=== PATIENT | female | born 1945 | race Caucasian/White ===

== ENCOUNTER 2018-01-13 13:12 | Emergency (ER) | payer MEDICARE ==
[~2018-01-13] VITALS: Ht 165.1 cm; Wt 86.0 kg
[~2018-01-13 13:12] MED LIST: ATOR20TA42 PO; CITRTAB7 PO; LEVO100T4 PO; LISI-363 PO; [UNRECOGNIZED DRUG - CODE] PO
[2018-01-13 13:15] VITALS: BP 133/66; PULSE 75; RESP 16; TEMP 97.5; O2SAT 97
[2018-01-13] MEDS ORDERED: ATOR20TA15 PO (13:27)
[2018-01-13] MEDS ORDERED: LISI-515 PO (13:27)
[2018-01-13] MEDS ORDERED: LEVO100T5 PO (13:27)
[2018-01-13] MEDS ORDERED: PAXI10TA8 PO (13:27)
--- NOTE | 2018-01-13 14:00 | PD ---
HPI Chief Complaint: Laceration/Skin Injury Time Seen by Provider: 13:42 Travel History International Travel<30 days: No Contact w/Intl Traveler<30days: No Traveled to known affect area: No History of Present Illness HPI 72-year-old female here with right hand pain and laceration. Patient reports she tripped and fell over a stack of wood injuring the right hand. She denies head injury or loss of consciousness. No neck pain, chest pain, abdominal pain , paresthesia or weakness of the extremities. Pain is localized to the dorsal aspect of the right hand where she has a 2 cm laceration. Symptom severity is moderate. Aggravated by palpation of the area. Relieved with rest. PFSH Past Medical History Cancer: No Cardiovascular Problems: Yes (PALPATATIONS) Diabetes: No Diminished Hearing: No Endocrine: Yes Gastrointestinal Disorders: Yes (GERD) Genitourinary: No Hepatitis: No Hiatal Hernia: No Hypertension: Yes Immune Disorder: No Musculoskeletal: Yes (OA) Neurologic: No Psychiatric: Yes (ANXIETY) Reproductive: No Respiratory: No Thyroid Disease: Yes Tetanus Vaccination: Unknown Influenza Vaccination: Yes Past Surgical History Abdominal Surgery: Yes (APPY, RIGHT OVARIAN CYSTECTOMY,CHOLECYSTECTOMY) AICD: No Body Medical Devices: LUMBAR HARDWARE Cardiac Surgery: Yes (CARDIAC CATH) Ear Surgery: No Endocrine Surgery: Yes (PTL THYROIDECTOMY) Eye Surgery: No Genitourinary Surgery: No Gynecologic Surgery: Yes (HYSTERECTOMY) Joint Replacement: No Neurologic Surgery: Yes (LUMBAR FUSION (X2)) Oral Surgery: No Pacemaker: No Thoracic Surgery: No Other Surgery: Yes Social History Alcohol Use: Yes (RARE) Tobacco Use: No Substance Use: No Allergies-Medications (Allergen,Severity, Reaction): Coded Allergies: Sulfa (Sulfonamide Antibiotics) (Unverified Allergy, Severe, HIVES, ) Reported Meds & Prescriptions Reported Meds & Active Scripts Active Reported Paxil (Paroxetine HCl) 10 Mg Tab 10 Mg PO DAILY Levothyroxine (Levothyroxine Sodium) 100 Mcg Tab 100 Mcg PO DAILY Atorvastatin (Atorvastatin Calcium) 20 Mg Tab 20 Mg PO HS Lisinopril 20 Mg Tab 20 Mg PO DAILY Review of Systems Except as stated in HPI: all other systems reviewed are Neg General / Constitutional: No: Fever Eyes: No: Visual changes HENT: No: Headaches Cardiovascular: No: Chest Pain or Discomfort Respiratory: No: Shortness of Breath Gastrointestinal: No: Abdominal Pain Genitourinary: No: Dysuria Physical Exam Narrative GENERAL: Alert and well-appearing 9-year-old female SKIN: Warm and dry. HEAD: Normocephalic. Atraumatic EYES: No injection or drainage. NECK: Supple, trachea midline. No cervical midline tenderness. CARDIOVASCULAR: Regular rate and rhythm RESPIRATORY: Breath sounds equal bilaterally. No accessory muscle use. GASTROINTESTINAL: Abdomen soft, non-tender, nondistended. MUSCULOSKELETAL: No cyanosis, or edema. Right hand: Tenderness over the dorsal aspect of the hand. No obvious deformity. There is a 2 cm flap laceration with minimal bleeding. Can flex and extend the fingers against resistance. Normal sensation distally. Cap refill intact. BACK: Nontender without obvious deformity. No CVA tenderness. Chest wall : no chest wall tenderness Data Data Last Documented VS Vital Signs Date Time Temp Pulse Resp B/P (MAP) Pulse Ox O2 Delivery O2 Flow Rate FiO2 01/13/18 13:15 97.5 75 16 133/66 (88) 97 Orders Orders Hand, Complete ([id number]) (01/13/18 ) [facility] Medical Decision Making Medical Screen Exam Complete: Yes Emergency Medical Condition: Yes Differential Diagnosis Laceration, metacarpal fracture, contusion Narrative Course 72-year-old female with right hand injury. The extremity is neurovascularly intact. No foreign bodies visualized. Wound was extensively cleansed and sutured closed. Procedures Procedure Narrative LACERATION LOCATION: Right hand dorsal aspect LENGTH: 2 cm NUMBER OF STITCHES/AZ: 5 REPAIR: The area of the laceration was prepped with Betadine and sterilely draped. The laceration was infiltrated with 1% lidocaine. The wound was copiously irrigated and explored without evidence of foreign body, tendon injury or neurovascular injury. The wound was closed using 4-0 Ethilon. This was a single layer repair. A sterile dressing was applied. The patient was advised to keep the dressing clean and dry. Patient tolerated the procedure well. Diagnosis Primary Impression: Hand laceration Qualified Codes: S61.411A - Laceration without foreign body of right hand, initial encounter Referrals: Primary Care Physician Additional Instructions: Sutures need to be removed in 7-10 days. Do not submerge the wound in water. Follow-up with her primary doctor for recheck in 2 days. Return to the emergency department if you develop signs of infection which would include redness, swelling, increasing pain, fever. Disposition: 01 DISCHARGE HOME Condition: Stable Melody Martinez Jan 13, 2018 14:00
--- NOTE | 2018-01-13 14:54 | RADRPT ---
EXAM DATE: 01/13/2018 2:37 PM EDT AGE/SEX: 72 years / Female INDICATIONS: Fell in wood pile, laceration to back of hand, pain CLINICAL DATA: This is the patient's initial encounter. Patient reports that signs and symptoms have been present for 1 day and indicates a pain score of 5/10. MEDICAL/SURGICAL HISTORY: None. . degloving injury to right hand COMPARISON: No prior exams available for comparison. 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 No acute fracture or dislocatio n. No bony destructive changes. CONCLUSION: Moderate to severe osteoarthritis. No acute bony abnormality. Electronically signed by: Forrest Morfin MD 01/13/2018 2:53 PM EDT
== END 2018-01-13 15:15 | disposition home or self-care (01) ==
LOC: PHEFT 13:12
DX: S61.411A Laceration without foreign body of right hand, initial encounter (principal); R00.2 Palpitations; K21.9 Gastro-esophageal reflux disease without esophagitis; I10 Essential (primary) hypertension; F41.9 Anxiety disorder, unspecified; E07.9 Disorder of thyroid, unspecified; W01.0XXA Fall on same level from slipping, tripping and stumbling without subsequent striking against object, initial encounter; Z79.899 Other long term (current) drug therapy; Z88.2 Allergy status to sulfonamides
CPT/HCPCS: 12001; 73130